=== PATIENT | male | born 1980 | race Asian ===

== ENCOUNTER 2021-10-16 02:20 | Inpatient (IN) | payer OTHER ==
[~2021-10-16] VITALS: Ht 170.2 cm; Wt 76.5 kg
[2021-10-16] MEDS ORDERED: LORazepam 2MG/ML-1ML VIAL IV ONE (04:00)
[2021-10-16] MEDS ORDERED: SODIUM CHLORIDE 0.9% 1,000 ML IV ONE (04:00)
[2021-10-16] MEDS ORDERED: ALUM & MAG HYDROX-SIMETH LIQ(MAALOX) 30 ML PO ONE (04:00)
[2021-10-16 04:21] LABS: Basophils # (auto) 0.1 10 ^3/uL (0-0.2); Basophils % (auto) 0.6 % (0.0-2.0); Eosinophils # (auto) 0 10 ^3/uL (0-0.8); Eosinophils % (auto) 0.3 % (0.0-7.0); Hematocrit 48.4 % (41.0-53.0); Hemoglobin 16.4 g/dL (13.5-17.5); Lymphocytes # (auto) 1.4 10 ^3/uL (0.4-5.4); Lymphocytes % (auto) 13.7 % (10.0-50.0); Mean Corpuscular Hemoglobin 32.7 pg (28.0-32.0); Mean Corpuscular Hgb Conc. 33.9 g/dL (32.0-36.0); Mean Corpuscular Volume 96.5 fL (80.0-100.0); Monocytes # (auto) 0.7 10 ^3/uL (0-1.3); Monocytes % (auto) 6.9 % (0.0-12.0); Neutrophils # (auto) 7.9 10 ^3/uL (1.6-8.6); Neutrophils % (auto) 78.5 % (37.0-80.0); Nucleated Red Blood Cells % 0.1 %; Red Blood Cells 5.02 10^6/uL (4.5-5.90); Red Cell Distribution Width 14.1 % (11.8-14.3); White Blood Cell 10.1 10^3/uL (4.4-10.8)
[2021-10-16 04:23] LABS: Potassium 4.4 mmol/L (3.5-5.1)
[2021-10-16 04:29] LABS: Albumin 3.6 g/dL (3.4-5.0); BUN/Creatinine Ratio 13.5; Calcium 9.3 mg/dL (8.5-10.1); Total Protein 6.9 g/dL (6.4-8.2)
[2021-10-16] MEDS ORDERED: THIAMINE HCL 100 MG TAB PO ONE (04:30)
[2021-10-16 04:51] LABS: Magnesium 2.3 mg/dL (1.6-2.6)
[2021-10-16] MEDS ORDERED: DONNATAL 5ml ORAL Elix (BELLADONNA ALK-PHENOBARB) PO ONE (06:00)
[2021-10-16] MEDS ORDERED: LIDOCAINE VISCOUS 2% 15ML UD PO ONE (06:00)
[2021-10-16] MEDS ORDERED: FUROSEMIDE 100 MG/10ML VIAL IV ONE (06:15)
[2021-10-16 06:39] LABS: Alcohol, Urine < 3.0 mg/dL (0-10); Amphetamine Screen, Urine NEGATIVE (NEGATIVE); Barbiturate Scree,Urine NEGATIVE (NEGATIVE); Benzodiazephine Screen, Urine NEGATIVE (NEGATIVE); Cannabinoid Screen, Urine POSITIVE (NEGATIVE); Cocaine Screen, Urine NEGATIVE (NEGATIVE); Opiate Scree,Urine NEGATIVE (NEGATIVE); Phencyclidine Screen, Urine NEGATIVE (NEGATIVE)
[2021-10-16] MEDS ORDERED: ONDANSETRON HCL 4 MG/2 ML VIAL IV PRN (10:30)
[2021-10-16] MEDS ORDERED: PANTOPRAZOLE 40 MG/10 ML VIAL INJ IV ONE (11:30)
[2021-10-16 11:50] VITALS: BP 143/110
[2021-10-16 12:21] LABS: Cholesterol 232 mg/dL (< 200); HDL Cholesterol 38 mg/dL (40-59); LDL Cholesterol 178 mg/dL (< 100); Triglycerides 92 mg/dL (< 150)
[2021-10-16 13:00] VITALS: BP 140/110
[2021-10-16 13:02] LABS: Urine Bacteria NONE SEEN /hpf (None Seen); Urine Blood Negative /uL (Negative); Urine Specific Gravity 1.007 (1.001-1.035); Urine WBC None Seen /hpf (0 - 3)
[2021-10-16] MEDS ORDERED: OPTISON 3ml Vial for INJ IV ONE (14:09)
[2021-10-16] MEDS ORDERED: LORazepam 2MG/ML-1ML VIAL IV PRN (15:00)
[2021-10-16] MEDS ORDERED: MORPHINE SULFATE INJECTION 2 MG/ML SYRG IV PRN (15:00)
[2021-10-16 17:00] VITALS: BP 124/76
[2021-10-16] MEDS: SUCRALFATE 1 GM/10 ML ORAL SUSP PO SCH ×2 (17:15→21:31)
[2021-10-16] MEDS: PANTOPRAZOLE 40 MG/10 ML VIAL INJ IV SCH (21:30)
[2021-10-16 21:52] VITALS: BP 120/94
[2021-10-17 05:00] VITALS: BP 126/93
[2021-10-17 06:17] LABS: Basophils # (auto) 0.1 10 ^3/uL (0-0.2); Basophils % (auto) 0.7 % (0.0-2.0); Eosinophils # (auto) 0.1 10 ^3/uL (0-0.8); Eosinophils % (auto) 1.4 % (0.0-7.0); Hematocrit 47.3 % (41.0-53.0); Hemoglobin 16.2 g/dL (13.5-17.5); Lymphocytes # (auto) 2.5 10 ^3/uL (0.4-5.4); Lymphocytes % (auto) 26.4 % (10.0-50.0); Mean Corpuscular Hemoglobin 33.1 pg (28.0-32.0); Mean Corpuscular Hgb Conc. 34.3 g/dL (32.0-36.0); Mean Corpuscular Volume 96.4 fL (80.0-100.0); Monocytes % (auto) 10.2 % (0.0-12.0); Neutrophils # (auto) 5.9 10 ^3/uL (1.6-8.6); Neutrophils % (auto) 61.3 % (37.0-80.0); Nucleated Red Blood Cells % 0.1 %; Red Blood Cells 4.91 10^6/uL (4.5-5.90); Red Cell Distribution Width 14.1 % (11.8-14.3); White Blood Cell 9.6 10^3/uL (4.4-10.8)
[2021-10-17 06:21] LABS: Potassium 4.1 mmol/L (3.5-5.1)
[2021-10-17 06:34] LABS: BUN/Creatinine Ratio 16.3; Bilirubin, Total 1.8 mg/dL (0.2-1.0); Total Protein 6.2 g/dL (6.4-8.2)
[2021-10-17 06:38] LABS: INR 1.22 (0.9-1.15); Partial Thromboplastin Time 25.8 sec (23.6-33.0)
[2021-10-17] MEDS: SUCRALFATE 1 GM/10 ML ORAL SUSP PO SCH ×4 (06:54→21:27)
[2021-10-17 09:00] VITALS: BP 141/106
[2021-10-17] MEDS ORDERED: PANTOPRAZOLE 40 MG/10 ML VIAL INJ IV SCH (10:00)
[2021-10-17] MEDS: APIXABAN 5 MG TAB PO SCH ×2 (10:00→21:27)
[2021-10-17] MEDS: FUROSEMIDE 100 MG/10ML VIAL IV SCH (10:00)
[2021-10-17] MEDS ORDERED: ENOXAPARIN SOD 40 MG/0.4 ML SYRINGE SC SCH (10:00)
[2021-10-17] MEDS: PANTOPRAZOLE 40 MG/10 ML VIAL INJ IV SCH ×2 (10:30→21:27)
[2021-10-17] MEDS: LISINOPRIL 10 MG TAB PO SCH (10:30)
[2021-10-17 13:00] VITALS: BP 141/105
[2021-10-17 17:11] VITALS: BP 116/79
[2021-10-17 22:00] VITALS: BP 112/85
[2021-10-18 05:00] VITALS: BP 116/92
[2021-10-18 06:16] LABS: Basophils # (auto) 0 10 ^3/uL (0-0.2); Basophils % (auto) 0.4 % (0.0-2.0); Eosinophils # (auto) 0.1 10 ^3/uL (0-0.8); Eosinophils % (auto) 1.4 % (0.0-7.0); Hematocrit 45.2 % (41.0-53.0); Hemoglobin 15.4 g/dL (13.5-17.5); Lymphocytes # (auto) 1.9 10 ^3/uL (0.4-5.4); Lymphocytes % (auto) 19.9 % (10.0-50.0); Mean Corpuscular Hemoglobin 32.8 pg (28.0-32.0); Mean Corpuscular Hgb Conc. 34.1 g/dL (32.0-36.0); Mean Corpuscular Volume 96.1 fL (80.0-100.0); Monocytes # (auto) 1.1 10 ^3/uL (0-1.3); Monocytes % (auto) 11.4 % (0.0-12.0); Neutrophils # (auto) 6.5 10 ^3/uL (1.6-8.6); Neutrophils % (auto) 66.9 % (37.0-80.0); Nucleated Red Blood Cells % 0.2 %; Red Cell Distribution Width 14.1 % (11.8-14.3); White Blood Cell 9.7 10^3/uL (4.4-10.8)
[2021-10-18 06:19] LABS: INR 1.23 (0.9-1.15)
[2021-10-18 06:24] LABS: Calcium 8.4 mg/dL (8.5-10.1); Potassium 4.3 mmol/L (3.5-5.1)
[2021-10-18] MEDS: SUCRALFATE 1 GM/10 ML ORAL SUSP PO SCH ×3 (06:29→17:14)
[2021-10-18 06:31] LABS: Albumin 2.7 g/dL (3.4-5.0); BUN/Creatinine Ratio 17.2; Bilirubin, Direct 0.2 mg/dL (0-0.2); Bilirubin, Total 1.2 mg/dL (0.2-1.0); Total Protein 5.8 g/dL (6.4-8.2)
[2021-10-18 08:00] VITALS: BP 131/101
[2021-10-18] MEDS ORDERED: DAPAGLIFLOZIN 5 MG TAB PO SCH (10:00)
[2021-10-18] MEDS: PANTOPRAZOLE 40 MG/10 ML VIAL INJ IV SCH (10:38)
[2021-10-18] MEDS: FUROSEMIDE 100 MG/10ML VIAL IV SCH (10:38)
[2021-10-18] MEDS: APIXABAN 5 MG TAB PO SCH (10:38)
[2021-10-18] MEDS: LISINOPRIL 10 MG TAB PO SCH (10:39)
[2021-10-18 11:31] LABS: Urine Blood Normal /uL (Negative)
[2021-10-18 11:39] LABS: Urine WBC None seen /hpf (0 - 3)
[2021-10-18 11:40] LABS: Urine Bacteria None seen /hpf (None Seen)
[2021-10-18 12:50] VITALS: BP 150/70
[2021-10-18 13:10] VITALS: BP 150/70
[2021-10-18] MEDS ORDERED: FURO1TAB32 PO (14:30)
[2021-10-18] MEDS ORDERED: APIX5TAB PO (14:30)
[2021-10-18] MEDS ORDERED: SUCR1SUS10 PO (14:30)
[2021-10-18] MEDS ORDERED: DAPA1TAB4 PO (14:30)
[2021-10-18] MEDS ORDERED: PANT40TA2 PO (14:30)
[2021-10-18] MEDS ORDERED: LISI-716 PO (14:30)
[2021-10-18 16:00] VITALS: BP 126/97
[2021-10-18] MEDS ORDERED: POTA10TA51 PO (16:52)
== END 2021-10-18 17:20 | disposition home or self-care (01) | DRG 291 ==
LOC: ER 02:37 → TELE 10:18 → TELE-WESTW 11:56
PROVIDERS: ADMIT Registered Nurse; ATTEND Registered Nurse
DX: I11.0 Hypertensive heart disease with heart failure (principal); I50.21 Acute systolic (congestive) heart failure; N17.9 Acute kidney failure, unspecified; I51.3 Intracardiac thrombosis, not elsewhere classified; K21.9 Gastro-esophageal reflux disease without esophagitis; R74.8 Abnormal levels of other serum enzymes; R79.89 Other specified abnormal findings of blood chemistry; R10.13 Epigastric pain; F10.10 Alcohol abuse, uncomplicated; Z80.9 Family history of malignant neoplasm, unspecified; Z82.49 Family history of ischemic heart disease and other diseases of the circulatory system; Z83.3 Family history of diabetes mellitus; Z71.41 Alcohol abuse counseling and surveillance of alcoholic; Z20.822 Contact with and (suspected) exposure to COVID-19
CPT/HCPCS: 36415; 71045; 74176; 80053; 80061; 80307; 81001; 82248; 83036; 83690; 83735; 83880; 84484; 85025; 85610; 85730; 87086; 93005; 93306; 96361; 96374; 99291; C9113; G0378; Q9956